=== PATIENT | female | born 1945 | race Caucasian/White ===

== ENCOUNTER 2019-05-20 11:01 | Outpatient (CLI) | payer MEDICARE, SELFPAY ==
--- NOTE | ~2019-05-20 | CT_ITS ---
EXAMINATION: CT hip LT wo con DATE: 05/20/2019 11:36 INDICATION: Left hip pain. TECHNIQUE: Computed tomography (CT) of the left hip was performed without intravenous contrast. Autom ated exposure control and iterative reconstruction technique were employed. The dose-length product w as 273.98 mGy-cm. COMPARISON: Pelvis CT 05/07/2019 FINDINGS: Partially visualized are cysts of left kidney. There are insufficiency fractures of left prakash perior and inferior pubic rami. At the superior pubic ramus, there is 3 mm displacement. There is a n ondisplaced insufficiency fracture of left sacral ala. There is mild left hip osteoarthritis. There i s severe lumbar spondylosis. IMPRESSION: 1. Acute insufficiency fractures of left superior and inferior pubic rami and left sacral ala, new fr 05/07/2019. 2. Mild left hip osteoarthritis. Reviewed, dictated and finalized at location A. WORKER IMPRESSION: 1. Acute insufficiency fractures of left superior and inferior pubic rami and l eft sacral ala, new from 05/07/2019. 2. Mild left hip osteoarthritis.
== END 2019-05-20 11:02 | disposition home or self-care (01) ==
PROVIDERS: PCP Family Medicine Adolescent Medicine; Visit Provider Internal Medicine Medical Oncology
DX: M25.552 Pain in left hip (principal); M16.12 Unilateral primary osteoarthritis, left hip
CPT/HCPCS: 73700

== ENCOUNTER 2019-06-16 12:57 | Outpatient (CLI) | payer MEDICARE, SELFPAY ==
--- NOTE | ~2019-06-16 | MR_ITS ---
EXAMINATION: MR lumbar spine wo con EXAM DATE: 06/16/2019 14:17 INDICATION: Colon cancer. Bilateral hip pain. TECHNIQUE: Multi-sequential, multiplanar MR images of the lumbar spine were obtained without contrast . Sagittal T1, T2, T2 fat saturation images. Axial T2 weighted images. There is no prior study for comparison. FINDINGS: Mild to moderate disc disease at L4-5, moderate at L5-S1 with 3 mm retrolisthesis. The vert ebral bodies are otherwise aligned. There is mild to moderate disc disease at T11-12. The conus medul mickey terminates at the L1/2 level and has normal signal intensity and morphology. There is edema in the left side of the sacrum, likely from the left sacral insufficiency fracture identified on recent CT. Paraspinal soft tissue is unremarkable. Renal lesions imaged portions consistent with cysts, he morrhagic cysts. Level by level evaluation: T11-12: There is a mild diffuse disc bulge. Facet arthropathy: Mild. Neural foraminal stenosis: No stenosis. Central canal stenosis: No stenosis. T12-L1: There is a mild diffuse disc bulge. Facet arthropathy: Mild. Neural foraminal stenosis: No stenosis. Central canal stenosis: No stenosis. L1-L2: There is a mild diffuse disc bulge. Facet arthropathy: Mild. Neural foraminal stenosis: No stenosis. Central canal stenosis: No stenosis. L2-L3: There is a mild to moderate diffuse disc bulge. Facet arthropathy: Mild. Neural foraminal stenosis: No stenosis. Central canal stenosis: Mild. L3-L4: There is a mild diffuse disc bulge. Facet arthropathy: Mild. Neural foraminal stenosis: Mild bilateral. Central canal stenosis: Mild. L4-L5: There is a mild to moderate diffuse disc bulge. Facet arthropathy: Mild to moderate. Neural foraminal stenosis: Mild to moderate bilateral. Central canal stenosis: Mild. L5-S1: There is a mild diffuse disc bulge. Facet arthropathy: Mild. Neural foraminal stenosis: Mild to moderate right, mild left. Central canal stenosis: No stenosis. IMPRESSION: 1. [id number] lumbar spondylosis. 2. Left-sided sacral bone marrow edema. Reviewed, dictated and finalized at location B. ORK DEVELOPER IMPRESSION: 1. [id number] lumbar spondylosis. 2. Left-sided sacral bone marrow edema.
--- NOTE | ~2019-06-16 | MR_ITS ---
EXAMINATION: MR thoracic spine wo con EXAM DATE: 06/16/2019 14:14 INDICATION: Spinal cord compression, thoracic pain, bilateral hip pain. TECHNIQUE: Multi-sequential, multiplanar MR images of the thoracic spine were obtained without contra st. Sagittal T1, T2, T2 fat saturation, axial T2 weighted images reviewed. There is no prior study for comparison. FINDINGS: There is mild to moderate diffuse thoracic disc disease. The thoracic central canal and marylu ral foramen appear widely patent. The spinal cord signal intensity and intrinsic morphology is normal . There is mild to moderate diffuse facet arthropathy. There are no suspicious marrow signal abnormal ities. Paper Mill Supervisor images demonstrates fluid signal intensity liver lesion, imaged portion consistent with cyst. IMPRESSION: 1. Normal cord morphology, signal and patent canal. 2. Mild to moderate thoracic spondylosis. Reviewed, dictated and finalized at location B. ACE BOSS
== END 2019-06-16 12:58 | disposition home or self-care (01) ==
PROVIDERS: PCP Family Medicine Adolescent Medicine; Visit Provider Internal Medicine Medical Oncology
DX: M47.814 Spondylosis without myelopathy or radiculopathy, thoracic region (principal); M47.816 Spondylosis without myelopathy or radiculopathy, lumbar region; G95.20 Unspecified cord compression; M89.9 Disorder of bone, unspecified
CPT/HCPCS: 72146; 72148

== ENCOUNTER → 2019-07-14 10:49 | Outpatient (CLI) | payer MEDICARE, SELFPAY ==
--- NOTE | ~2019-07-14 | CT_ITS ---
EXAMINATION: CT abdomen w con DATE: 07/14/2019 11:34 INDICATION: Colon cancer with metastatic disease TECHNIQUE: Computed tomography (CT) of the abdomen was performed with 100 cc Omnipaque 350 intravenou s contrast. The dose-length product was 225.37 mGy-cm. Automated exposure control and iterative recon struction technique were employed. COMPARISON: CT dated 03/09/2019. FINDINGS: There are liver and bilateral renal cysts, unchanged. Stable 1.9 x 1.4 cm mass right hepati c lobe. Stable lingular nodule measuring 11 mm. There is dependent atelectasis. Stable 6 mm right mid dle lobe nodule. There are calcified granulomas. The spleen, pancreas, adrenal glands are unremarkabl e. Bowel pattern is nonobstructive. No lymphadenopathy. There is a new left sacral insufficiency frac ture, incompletely visualized. Moderate lumbar spondylosis. IMPRESSION: 1. Stable lung nodules and liver mass, consistent with metastatic disease. 2: New left sacral insufficiency fracture, incompletely visualized. Reviewed, dictated and finalized at location A.
[2019-07-14 11:22] LABS: Estimated Glomerular Filt Rate > 60
== END ==
PROVIDERS: Visit Provider Internal Medicine Medical Oncology
DX: C18.7 Malignant neoplasm of sigmoid colon (principal); R10.12 Left upper quadrant pain; R91.8 Other nonspecific abnormal finding of lung field; R16.0 Hepatomegaly, not elsewhere classified; M84.48XA Pathological fracture, other site, initial encounter for fracture
CPT/HCPCS: 36415; 74160; Q9967

== ENCOUNTER 2019-08-25 09:30 | Outpatient (CLI) | payer MEDICARE, SELFPAY ==
--- NOTE | ~2019-08-25 | MR_ITS ---
EXAMINATION: MR brain/brain stem wo/w con DATE: 08/25/2019 11:12 INDICATION: Syncope. Malignant colon cancer. TECHNIQUE: Magnetic resonance imaging (MRI) of the brain and brainstem was performed without and with 10 mL Multihance intravenous contrast. Sequences included sagittal and axial T1-weighted SE, axial d iffusion-weighted FS SE, axial T2*-weighted GRE, axial T2-weighted FLAIR, and axial T2-weighted FSE. Postcontrast axial, sagittal and coronal T1-weighted SE was obtained. Apparent diffusion coefficient (ADC) maps were created. COMPARISON: None. FINDINGS: There are no areas of restricted diffusion to suggest acute infarction. No intracranial hemorrhage or abnormal intracranial mass lesion. There are scattered areas of nonspecific increased T2-weighted si gnal intensity in the cerebral white matter, predominantly involving the deep and periventricular whi te matter which is within normal limits for age and likely sequela of chronic small vessel ischemic d isease. There are no intraparenchymal signal abnormalities seen on the other pulse sequences. Symmetr ic prominence of the sulci consistent with mild age-appropriate diffuse cerebral volume loss. The ve ntricles are symmetric and normal in size. There are no abnormal extra-axial fluid collections. Flow voids are seen in the cerebral arteries on the T2-weighted sequences consistent with their expected p atency. Mild mucosal thickening in the bilateral ethmoid sinuses and a few small mucous retention cys t in the left maxillary sinus. Visualized orbits and soft tissues are unremarkable. There are no area s of abnormal enhancement on the post contrast images. IMPRESSION: 1. No acute intracranial process or abnormally enhancing lesions. 2. Age-related changes including mild diffuse volume loss and age-appropriate scattered T2 hyperinten se white matter lesions likely sequela of chronic small vessel ischemic disease. Reviewed, dictated and finalized at location A. IMPRESSION: 1. No acute intracranial process or abnormally enhancing lesions. 2. Age-related changes including mild diffuse volume loss and age-appropriate s cattered T2 hyperintense white matter lesions likely sequela of chronic small v essel ischemic disease.
[2019-08-25 10:37] LABS: Estimated Glomerular Filt Rate 49
== END 2019-08-25 09:31 | disposition home or self-care (01) ==
LOC: ANHIMG 09:44
PROVIDERS: PCP Family Medicine Adolescent Medicine; Visit Provider Internal Medicine Medical Oncology
DX: C18.7 Malignant neoplasm of sigmoid colon (principal); R55 Syncope and collapse; W19.XXXA Unspecified fall, initial encounter
CPT/HCPCS: 36415; 70553; A9577